=== PATIENT | female | born 1960 | race Caucasian/White ===

== ENCOUNTER 2018-07-16 17:27 | Emergency (ER) | payer OTHER ==
[2018-07-16] MEDS ORDERED: cefTRIAXone 1 GM Vial IVPUSH ONE (17:55)
--- NOTE | 2018-07-16 18:04 | EDM.PDOC ---
Scribed by Didi Martinez 07/16/18 0240 for Chad Can PA ED HPI GENERAL MEDICAL PROBLEM - General Chief Complaint: ENT Problem Stated Complaint: FACIAL SWELLING,RT SIDE Time Seen by Provider: 07/16/18 17:45 Source of Information: Reports: Patient, RN, RN Notes Reviewed History Limitations: Reports: No Limitations - History of Present Illness INITIAL COMMENTS - FREE TEXT/NARRATIVE: Patient presents with a tooth abscess. Two days ago it started swelling. Her pain started 4 days ago. Patient is from [place], reason for the delay. She saw Dr. Ricci and given a dose of Penicillin today. Dr. Ricci advised that she come to the ED for antibiotics. Onset: Gradual Duration: Getting Worse Location: Reports: Other (tooth abscess) Quality: Reports: Ache Severity: Moderate Improves with: Reports: None Worsens with: Reports: None Associated Symptoms: Reports: No Other Symptoms - Related Data Allergies Allergy/AdvReac Type Severity Reaction Status Date / Time novacaine Allergy Fever Uncoded 07/16/18 17:34 Home Meds: Home Meds Acetaminophen [Tylenol] 650 mg PO Q4HR PRN 07/16/18 [History] Calcium Carbonate/Vitamin D3 [Calcium 500 + Vit D 400] 1 tab PO DAILY 07/16/18 [ History] Cholecalciferol (Vitamin D3) [Vitamin D3] 1,000 units PO DAILY 07/16/18 [History ] Famotidine [Pepcid] 20 mg PO DAILY PRN 07/16/18 [History] Ibuprofen [Motrin] 800 mg PO Q8HR PRN 07/16/18 [History] Lisinopril 20 mg PO DAILY 07/16/18 [History] Metoprolol Tartrate 50 mg PO DAILY 07/16/18 [History] Zolpidem [Ambien] 2.5 mg PO BEDTIME PRN 07/16/18 [History] ED ROS ENT - Review of Systems Review Of Systems: ROS reveals no pertinent complaints other than HPI. ED EXAM, ENT - Physical Exam Exam: See Below Exam Limited By: No Limitations General Appearance: Alert, WD/WN, No Apparent Distress Eye Exam: Bilateral Eye: EOMI, Normal Inspection, PERRL Ears: Normal External Exam, Normal Canal, Hearing Grossly Normal, Normal TMs Nose: Normal Inspection, Normal Mucousa, No Blood Mouth/Throat: Other (right upper posterior dental pain and swelling) Head: Atraumatic, Normocephalic Neck: Normal Inspection, Supple, Non-Tender, Full Range of Motion Respiratory/Chest: No Respiratory Distress, Lungs Clear, Normal Breath Sounds, No Accessory Muscle Use, Chest Non-Tender Cardiovascular: Normal Peripheral Pulses, Regular Rate, Rhythm, No Edema, No Gallop, No JVD, No Murmur, No Rub GI/Abdominal: Normal Bowel Sounds, Soft, Non-Tender, No Organomegaly, No Distention, No Abnormal Bruit, No Mass (Female) Exam: Deferred Rectal (Female) Exam: Deferred Back: Normal Inspection, Full Range of Motion Extremities: Normal Inspection, Normal Range of Motion, Non-Tender, No Pedal Edema, Normal Capillary Refill Neurological: Alert, Oriented, CN II-XII Intact, Normal Cognition, Normal Gait, Normal Reflexes, No Motor/Sensory Deficits Psychiatric: Normal Affect, Normal Mood Skin: Warm, Dry, Intact, Normal Color, No Rash Lymphatic: No Adenopathy Course - Vital Signs Last Recorded V/S: Last Vital Signs Temp 37.2 C 07/16/18 17:35 Pulse 117 H 07/16/18 17:35 Resp 15 07/16/18 17:35 BP 151/78 H 07/16/18 17:35 Pulse Ox 98 07/16/18 17:35 - Orders/Labs/Meds Meds: Medications Discontinued Medications Generic Name Dose Route Start Last Admin Trade Name Freq PRN Reason Stop Dose Admin Ceftriaxone Sodium 1 gm 07/16/18 17:55 Rocephin IVPUSH 07/16/18 17:56 ONETIME ONE Departure - Departure Time of Disposition: 18:02 Disposition: Home, Self-Care 01 Condition: Fair Clinical Impression: Dental abscess - Discharge Information *PRESCRIPTION DRUG MONITORING PROGRAM REVIEWED*: Not Applicable *COPY OF PRESCRIPTION DRUG MONITORING REPORT IN PATIENT [place]: Not Applicable Instructions: Dental Abscess, [id number] Forms: ED Department Discharge Care Plan Goals: The patient was advised of the examination results during the visit. The patient was given 1 gram of IV Rocephin while in the ED. The patient was encouraged to follow-up with Dr. Ricci tomorrow as scheduled. If the patient has any additional symptoms or concerns, the patient should either visit Dr. Ricci or return to the emergency department. I have read and agree with the documentation that has been completed regarding this visit. By signing this record, I attest that the documentation was completed in my physical presence and is an accurate record of the encounter.
== END 2018-07-16 18:25 | disposition home or self-care (01) ==
LOC: DL.ED 17:27
DX: K04.7 Periapical abscess without sinus (principal); Z79.899 Other long term (current) drug therapy; Z88.8 Allergy status to other drugs, medicaments and biological substances
CPT/HCPCS: 96372; 99283; J0696